=== PATIENT | female | born 1995 | race Caucasian/White ===

== ENCOUNTER → 2018-11-16 | Outpatient (CLI) | payer OTHER ==
[2018-11-16 12:37] LABS: HEMATOCRIT 45.1 % (37.0-47.0); HEMOGLOBIN 14.6 g/dl (12.0-16.0); MEAN CELL VOLUME 92.2 fl (81.0-99.0); MEAN CORPUSCULAR HGB 29.9 pg (27.0-31.0); MEAN CORPUSCULAR HGB CONC 32.4 g/dl (33.0-37.0); MEAN PLATELET VOLUME 9.2 fl (9.6-12.3); RED BLOOD COUNT 4.89 10*6/uL (4.10-5.10); RED CELL DISTRI WIDTH 12.3 % (0-14.5); WHITE BLOOD COUNT 6.4 10*3/uL (4.8-10.8)
[2018-11-16 12:38] LABS: CHLORIDE 107 mmol/L (98-107); SODIUM 139 mmol/L (136-145)
[2018-11-16 12:49] LABS: ALBUMIN 3.9 gm/dl (3.1-4.5); ALKALINE PHOSPHATASE 48 U/L (45-117); BUN 12 mg/dl (7-24); CREATININE 0.71 mg/dL (0.55-1.02); SGOT/AST 9 IU/L (3-35); SGPT/ALT 19 U/L (12-78); TOTAL PROTEIN 7.1 gm/dL (6.4-8.2)
[2018-11-16 12:53] LABS: BETA-HCG, QUANT < 1.0 mIU/mL (1-3)
[2018-11-17 05:10] LABS: HEPATITIS B SURFACE AB 006395 Reactive (.)
[2018-11-17 16:11] LABS: VARICELLA-ZOSTER IGG 096206 2268 index (Immune >165)
== END | disposition home or self-care (01) ==
LOC: LAB 11:57
PROVIDERS: Family Medicine
DX: N91.2 Amenorrhea, unspecified (principal)

== ENCOUNTER → 2018-12-19 | Outpatient (CLI) | payer OTHER ==
[2018-12-19 14:01] LABS: HEMATOCRIT 44.1 % (37.0-47.0); HEMOGLOBIN 14.9 g/dl (12.0-16.0); MEAN CORPUSCULAR HGB 30.4 pg (27.0-31.0); MEAN CORPUSCULAR HGB CONC 33.8 g/dl (33.0-37.0); MEAN PLATELET VOLUME 9.3 fl (9.6-12.3); RED BLOOD COUNT 4.9 10*6/uL (4.10-5.10); RED CELL DISTRI WIDTH 12.2 % (0-14.5); WHITE BLOOD COUNT 6.3 10*3/uL (4.8-10.8)
[2018-12-19 14:23] LABS: ALBUMIN 4.1 gm/dl (3.1-4.5); ALKALINE PHOSPHATASE 50 U/L (45-117); BUN 9 mg/dl (7-24); CHLORIDE 106 mmol/L (98-107); CREATININE 0.67 mg/dL (0.55-1.02); POTASSIUM 4.1 mmol/L (3.5-5.1); SGOT/AST 13 IU/L (3-35); SGPT/ALT 17 U/L (12-78); SODIUM 139 mmol/L (136-145); TOTAL PROTEIN 7.2 gm/dL (6.4-8.2)
[2018-12-19 14:30] LABS: THYROID STIM HORMONE (HS) 0.564 uIU/ml (0.358-4.75)
== END | disposition home or self-care (01) ==
LOC: LAB 12:50 → US 13:00
PROVIDERS: Family Medicine
DX: O92.6 Galactorrhea (principal); R53.83 Other fatigue; N91.2 Amenorrhea, unspecified

== ENCOUNTER → 2019-04-12 | Outpatient (CLI) | payer OTHER | END | disposition home or self-care (01) | LOC: MRI 14:59 | DX: C79.49 Secondary malignant neoplasm of other parts of nervous system (principal) ==